=== PATIENT | female | born 1995 | race Caucasian/White ===

== ENCOUNTER 2017-04-24 22:32 | Emergency (ER) | payer BC ==
[2017-04-24 23:03] LABS: #Basophils 0.1 thou/uL (0.0-0.2); #Eosinphils 0.3 thou/uL (0.0-0.7); #Lymphocytes 0.7 thou/uL (1.20-3.40); #Monocytes 0.8 thou/uL (0.11-0.59); #Neutrophils 16.6 thou/uL (1.40-6.50); %Basophils 0.4 % (0.0-1.0); %Eosinophils 1.5 % (0.0-10.0); %Lymphocytes 3.6 % (28.0-48.0); %Monocytes 4.2 % (0.0-4.0); Hematocrit 43.5 % (36.0-47.0); Mean Platelet Volume 5.9 fL (7.4-10.4); Red Blood Cell (RBC) Count 5.13 mill/uL (4.00-5.20); White Blood Cell (WBC) Count 18.4 thou/uL (4.8-10.8)
[2017-04-24] MEDS ORDERED: Promethazine HCl 25 MG/ML VIAL ONE (23:12)
[2017-04-24 23:18] LABS: ALT (SGPT) 12 U/L (8-55); AST (SGOT) 16 U/L (5-34); Alkaline Phosphatase 52 U/L (40-150); Anion Gap 16 mmol/L (10-20); BUN (Urea Nitrogen) 12 mg/dL (7.0-18.7); Bilirubin, Total 0.6 mg/dL (0.2-1.2); Calc. Creatinine Clearance 0 mL/min (70-130); Calcium 9.4 mg/dL (7.8-10.44); Carbon Dioxide 23 mmol/L (22-29); Chloride 106 mmol/L (98-107); Estimated GFR-MDRD Greater than 90; Globulin 3.3 g/dL (2.4-3.5); Lipase 25 U/L (8-78); Protein, Total 7.9 g/dL (6.0-8.3)
[2017-04-24] MEDS ORDERED: Famotidine/PF 20 mg/2ml Vial ONE ×2 (23:18→23:19)
[2017-04-25 04:04] LABS: Bacteria/HPF 2+ HPF (None Seen); Bilirubin Negative (Negative); Blood, Urine Trace (Negative); Glucose, Urine (Dipstick) Negative (Negative); Ketone, Urine > or equal to 80 mg/dL (Negative); Nitrite Negative (Negative); Protein, Urine (Dipstick) Negative (Neg-Trace); RBC/HPF 0-3 HPF (0-3); WBC/HPF 0-3 HPF (0-3)
[2017-04-25 04:05] LABS: Hyaline Casts/LPF NONE SEEN LPF (0-3 Hyaline)
== END 2017-04-25 01:15 | disposition home or self-care (01) ==
LOC: SCSER 22:32
DX: K29.00 Acute gastritis without bleeding (principal); F32.9 Major depressive disorder, single episode, unspecified; F17.210 Nicotine dependence, cigarettes, uncomplicated
CPT/HCPCS: 80053; 81003; 81015; 83690; 85025; 96361; 96374; 96375; J2550; S0028

== ENCOUNTER 2017-04-25 15:52 | Outpatient (CLI) | payer BC ==
--- NOTE | 2017-04-25 18:51 | ULT ---
PELVIC SONOGRAM TRANSABDOMINAL AND TRANSVAGINAL IMAGING WITH DUPLEX EVALUATION 04/25/17 HISTORY: Pelvic pain. FINDINGS: Urinary bladder is incompletely distended. The uterus has a heterogeneous echotexture and is 6.2 cm in length. Endometrium is 0.3 cm thickness. No free fluid is apparent. The right ovary is 2.7 cm in length and the left 4.2 cm. Each has a normal sonographic appearance and demonstrates good color and spectral doppler flow. IMPRESSION: Normal pelvic sonogram. POS: [facility]
== END 2017-04-25 15:53 | disposition home or self-care (01) ==
LOC: SCSULT 15:52
PROVIDERS: ATTEND Family Medicine
DX: R10.31 Right lower quadrant pain (principal); R50.9 Fever, unspecified; R10.2 Pelvic and perineal pain
CPT/HCPCS: 76856; 87070; 87077; 87491; 87591